=== PATIENT | male | born 2000 | race Caucasian/White ===

== ENCOUNTER 2021-05-13 11:12 | Emergency (ER) | payer MEDICAID, SELFPAY ==
[2021-05-13 11:54] VITALS: BP 125/74; PULSE 91; RESP 16; TEMP 36.9; O2SAT 99; BMI 29.8
--- NOTE | 2021-05-13 13:38 | ED_ITS ---
HPI - Male Genitourinary General Chief complaint: Urogenital-Male Stated complaint: Genital pain Time Seen by Provider: 05/13/21 13:38 Source: patient Limitations: no limitations History of Present Illness HPI Narrative: Patient complaining burning with urination since yesterday. No prior history of similar episodes patient denies past history of STDs patient states no penile discharge or lesions on the penis at this time. Patient denies any self cathing rituals her past UTIs. Symptoms mild to moderate. Pain 09/02. Patient on known STD exposure. Related Data Previous Rx's Medication Instructions Recorded doxycycline hyclate 100 mg capsule 100 mg PO BID 7 Days #14 cap 05/13/21 Allergies Allergy/AdvReac Type Severity Reaction Status Date / Time No Known Allergies Allergy Verified 05/13/21 11:57 [No Known Allergies*] Review of Systems Constitutional: Constitutional: Denies body ache(s), Denies chills and Denies fever(s) Cardiovascular: Cardiovascular: Denies chest pain and Denies dyspnea Respiratory: Respiratory: Denies dyspnea Gastrointestinal: Gastrointestinal: Denies nausea and Denies vomiting Genitourinary: Genitourinary: Denies genital lesions, Denies genital pain, Reports dysuria, Denies penile discharge, Denies testicular pain and Denies urinary frequency Musculoskeletal: Musculoskeletal: Reports no additional musculoskeletal complaints PMFSH Past Medical History Attestation statement: The following information was validated with the patient. Social History Social History Advance Directives: No Physical Exam Vital Signs: Vital Signs: Last Vital Signs Temp 98.4 F 05/13/21 11:54 Pulse 91 05/13/21 11:54 Resp 16 05/13/21 11:54 BP 125/74 05/13/21 11:54 Pulse Ox 99 05/13/21 11:54 Body Mass Index 29.8 vital signs have been reviewed as normal and appeared to be correct. Blood pressure normal. Heart rate normal. Respiration rate normal. Temperature no rmal. Oxygen saturation normal. Appearance: Alert. Oriented X3. No acute distress. Head: Normal external exam. Normocephalic. Atraumatic. Eyes: PERRLA. EOMI. Conjunctiva and sclera normal. Eyelids normal. ENT: Pharynx normal. Uvula midline. Moist mucous membranes. CVS: Heart regular rate and rhythm no murmurs and rubs Respiratory: Breath sounds are clear to auscultation bilaterally. No accessory muscle use noted. Abdomen: Soft nontender no rebound or guarding positive bowel sounds : Deferred patient refused Skin: Skin warm and dry. Normal skin color. Normal skin turgor. No rashes/lesions/lacerations noted. Extremities: No lower extremity edema. Extremities exhibit normal range of motion. Extremities nontender. Neuro: Oriented X 3. No motor deficit. No sensory deficit. Reflexes normal. Course Course Course Narrative: Cystitis Chlamydia Gonorrhea Dysuria Symptoms are concerning for chlamydia gonorrhea will treat at this time 500 mg ceftriaxone IM 1 g Zithromax p.o. plan to discharge patient home on doxycycline Dirty urine collected for chlamydia gonorrhea test Discharge Plan Discharge Clinical Impression: Cystitis Patient Disposition: Home, Self-Care Instructions: Sexually Transmitted Diseases (ED) Additional Instructions: You have been treated for chlamydia gonorrhea UA test is pending Return if symptoms worsen antibiotics as directed Prescriptions: New doxycycline hyclate 100 mg capsule 100 mg PO BID 7 Days Qty: 14 RF: 0
[2021-05-13] MEDS: cefTRIAXone sodium 500 MG VIAL IM (13:57)
[2021-05-13] MEDS: Azithromycin 500 MG TABLET 1000 MG PO (13:58)
[2021-05-13 16:57] LABS: CT PCR DETECTED (Not Detect.)
[2021-05-13 16:58] LABS: NG PCR DETECTED (Not Detect.)
== END 2021-05-13 14:06 | disposition home or self-care (01) ==
PROVIDERS: Physician Assistant; Emergency Provider Emergency Medicine Emergency Medical Services
DX: N30.90 Cystitis, unspecified without hematuria (principal); N50.819 Testicular pain, unspecified; R30.0 Dysuria; Z20.2 Contact with and (suspected) exposure to infections with a predominantly sexual mode of transmission; Z79.899 Other long term (current) drug therapy
CPT/HCPCS: 87491; 87591; 96372; 99284; J0696

== ENCOUNTER 2022-09-28 15:35 | Emergency (ER) | payer OTHER, MEDICAID, SELFPAY ==
[2022-09-28 16:40] VITALS: BP 99/56; PULSE 70; RESP 16; TEMP 36.8; O2SAT 97; BMI 26.2
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
== END 2022-09-28 16:59 | disposition home or self-care (01) ==
PROVIDERS: Emergency Provider Emergency Medicine Emergency Medical Services
DX: S39.012A Strain of muscle, fascia and tendon of lower back, initial encounter (principal); V43.52XA Car driver injured in collision with other type car in traffic accident, initial encounter; Y93.89 Activity, other specified; Y92.414 Local residential or business street as the place of occurrence of the external cause; Y99.9 Unspecified external cause status
CPT/HCPCS: 99282; 99283

== ENCOUNTER 2025-04-30 17:49 | Outpatient (REF) | payer OTHER, MEDICAID, SELFPAY ==
[2025-05-01 05:11] LABS: CT PCR Urine NOT DETECTED (Not Detect.); NG PCR Urine NOT DETECTED (Not Detect.)
== END 2025-04-30 17:50 | disposition home or self-care (01) ==
LOC: HO.HHCLNP 17:49
DX: Z20.2 Contact with and (suspected) exposure to infections with a predominantly sexual mode of transmission (principal); Z78.9 Other specified health status
CPT/HCPCS: 87491; 87591